=== PATIENT | female | born 1960 | race Caucasian/White ===

== ENCOUNTER 2019-06-13 13:16 | Outpatient (CLI) | payer MEDICARE, MEDICAID, SELFPAY ==
[2019-06-13 14:14] LABS: Hematocrit 39.1 % (37.0-47.0); Hemoglobin 12.4 g/dL (12.0-15.0); Mean Corpuscular HGB Conc 31.7 g/dl (32-36); Mean Corpuscular Hemoglobin 30.8 pg (26-34); Mean Platelet Volume 9.3 fl (7.4-10.4); Platelet Count Result 310 k/mm3 (150-375); Red Blood Count 4.03 M/mm3 (4.2-5.4); Red Cell Distribution Width 13.9 % (11.5-14.5); White Blood Count 6.2 K/mm3 (4.5-10.0)
[2019-06-13 14:22] LABS: Alanine Aminotransferase 23 U/L (4-35); Albumin Level 3.9 g/dL (3.5-5.1); Alkaline Phosphatase 89 U/L (38-126); Aspartate Amino Transferase 29 U/L (14-36); Bilirubin,Total 0.2 mg/dL (0.2-1.3); Blood Urea Nitrogen 19 mg/dL (7-17); Calcium 9.5 mg/dL (8.4-10.2); Carbon Dioxide 28 mmol/L (22-30); Chloride 101 mmol/L (98-107); Estimated Glomerular Filt Rate > 60; Glucose 100 mg/dL (65-105); Potassium 3.6 mmol/L (3.4-5.0); Sodium 137 mmol/L (137-145)
[2019-06-13 14:23] LABS: Add Urine Microscopic? YES; Appearance Urine Cloudy (Clear); Bacteria Urine Trace /hpf; Bilirubin Urine Negative (Negative); Blood Urine Negative (Negative); Calcium Oxalate Crystals Urine Many /hpf; Color Urine Amber (Yellow); Glucose Urine UA Negative (Negative); Ketones Urine Negative (Negative); Leukocyte Esterase Ur 3+ LEU/UL (NEGATIVE); Mucus Urine Heavy /lpf; Nitrate Urine Negative (Negative); Protein Urine 1+ mg/dL (Negative); Specific Grav Ur 1.029 (1.001-1.035); Squamous Epithelial Cell Urine Few /hpf (Few); WBC Urine >75 /hpf (0-3)
[2019-06-19 21:42] LABS: Anti Nuclear Antibody Pattern Nuclear, Speckled
== END 2019-06-13 13:17 | disposition home or self-care (01) ==
PROVIDERS: PCP Internal Medicine
DX: L93.0 Discoid lupus erythematosus (principal)
CPT/HCPCS: 36415; 80048; 80076; 81001; 85027; 86038; 86039

== ENCOUNTER 2019-11-14 10:45 | Outpatient (CLI) | payer MEDICARE, MEDICAID, SELFPAY ==
--- NOTE | ~2019-11-14 | XR_ITS ---
EXAMINATION: HAND-FESTUS ARTHRITIS 3+VIEWS DATE: 11/14/2019 11:12 INDICATION: Osteoarthritis TECHNIQUE: Posteroanterior, lateral, and oblique views of the left and of the right hands as well as a ballcatchers view of both hands were obtained. COMPARISON: 03/30/2017 FINDINGS: Unchanged chronic mild widening of the right scapholunate interval. There is ulnar subluxation and an gulation at the bilateral second-fifth metacarpophalangeal joints. Typical pattern of relatively symm etric mild polyarticular osteoarthritis bilateral metacarpophalangeal and interphalangeal joints as w ell as the bilateral wrist, triscaphe and first carpal metacarpal joints. No cortical erosions to sug gest rheumatoid arthritis. IMPRESSION: 1. Jaccoud arthropathy with ulnar subluxation and deviation at the bilateral second-fifth metacarpoph alangeal joints typical of and consistent with provided history of lupus. 2. Mild polyarticular osteoarthritis. 3. Chronic widening of the right scapholunate interval suggesting at least partial tear of the scapho lunate ligament. Reviewed, dictated and finalized at location A. IMPRESSION: 1. Jaccoud arthropathy with ulnar subluxation and deviation at the bilateral se cond-fifth metacarpophalangeal joints typical of and consistent with provided h istory of lupus. 2. Mild polyarticular osteoarthritis. 3. Chronic widening of the right scapholunate interval suggesting at least part ial tear of the scapholunate ligament.
--- NOTE | ~2019-11-14 | XR_ITS ---
EXAMINATION: XR foot LT standing 2V, XR foot RT standing 2V DATE: 11/14/2019 11:13 INDICATION: Lupus TECHNIQUE: 1. Standing dorsal plantar and lateral views of the left foot were obtained. 2. Standing dorsal plantar and lateral views of the right foot were obtained. COMPARISON: None. FINDINGS: Mild hallux valgus at the right foot. Normal alignment at the left foot. No fractures. Relatively sym metric mild osteoarthritis at the bilateral first metatarsophalangeal joints with minimal osteoarthri tis at a few of the tarsal metatarsal and interphalangeal joints. No erosions to suggest an inflammat ory arthritis. Small bilateral Achilles and plantar calcaneal spurs. Soft tissues are unremarkable. IMPRESSION: 1. Relatively symmetric pattern of minimal to mild polyarticular osteoarthritis in the fore and mid f eet. Reviewed, dictated and finalized at location A. IMPRESSION: 1. Relatively symmetric pattern of minimal to mild polyarticular osteoarthritis in the fore and mid feet.
[2019-11-14 11:53] LABS: Hematocrit 39.5 % (37.0-47.0); Hemoglobin 13.3 g/dL (12.0-15.0); Mean Corpuscular HGB Conc 33.7 g/dl (32-36); Mean Corpuscular Hemoglobin 31.6 pg (26-34); Mean Corpuscular Volume 93.8 fl (80-100); Mean Platelet Volume 9.1 fl (7.4-10.4); Platelet Count Result 263 k/mm3 (150-375); Red Blood Count 4.21 M/mm3 (4.2-5.4); Red Cell Distribution Width 14.3 % (11.5-14.5); White Blood Count 3.7 K/mm3 (4.5-10.0)
[2019-11-14 11:59] LABS: Add Urine Microscopic? YES; Appearance Urine Clear (Clear); Bilirubin Urine Negative (Negative); Blood Urine Negative (Negative); Color Urine Amber (Yellow); Glucose Urine UA Negative (Negative); Ketones Urine Negative (Negative); Leukocyte Esterase Ur 3+ LEU/UL (Negative); Mucus Urine Few /lpf; Nitrate Urine Negative (Negative); Protein Urine 1+ mg/dL (Negative); Specific Grav Ur 1.025 (1.001-1.035); Squamous Epithelial Cell Urine Occasional /hpf (Few); WBC Urine >75 /hpf
[2019-11-14 12:11] LABS: Alanine Aminotransferase 26 U/L (4-35); Albumin Level 4.4 g/dL (3.5-5.1); Alkaline Phosphatase 133 U/L (38-126); Aspartate Amino Transferase 31 U/L (14-36); Bilirubin,Total 0.2 mg/dL (0.2-1.3); Blood Urea Nitrogen 17 mg/dL (7-17); CRP < 0.5 mg/dL (<1.0); Calcium 9.2 mg/dL (8.4-10.2); Carbon Dioxide 26 mmol/L (22-30); Chloride 107 mmol/L (98-107); Estimated Glomerular Filt Rate > 60; Glucose 108 mg/dL (65-105); Potassium 4.1 mmol/L (3.4-5.0); Sodium 141 mmol/L (137-145)
[2019-11-14 12:24] LABS: Erythrocyte Sedimentation Rate 28 mm/hr (0-20)
[2019-11-14 12:54] LABS: Complement C3 97 mg/dL (88-165); Rheumatoid Factor > 120.0 IU/ML (<12)
[2019-11-14 13:08] LABS: Vitamin D 25 Hydroxy 40.5 ng/mL
[2019-11-16 21:45] LABS: Anti Cyclic Citrullinated Pept <16 Units (<20)
[2019-11-16 21:56] LABS: Anti Cardio Antibody IgM 15 MPL (<=12); Anti Cardiolipin Antibody IgA <11 APL (<=11); Anti Cardiolipin Antibody IgG <14 GPL (<=14)
[2019-11-17 04:36] LABS: Lupus dRVVT 1:1 Mix Interpreta Not Indicated; Lupus dRVVT Screen 30 sec (<=45); PTT-LA Screen 30 sec (<=40)
[2019-11-18 09:42] LABS: SS-A <1.0; SS-B 2.1
[2019-12-26 14:08] LABS: SM Antibody <1.0
== END 2019-11-14 10:46 | disposition home or self-care (01) ==
LOC: ANHIMG 10:51
PROVIDERS: PCP Internal Medicine; Visit Provider Internal Medicine
DX: M32.9 Systemic lupus erythematosus, unspecified (principal); M19.90 Unspecified osteoarthritis, unspecified site; M25.9 Joint disorder, unspecified; M81.0 Age-related osteoporosis without current pathological fracture; M19.072 Primary osteoarthritis, left ankle and foot; M19.071 Primary osteoarthritis, right ankle and foot; M12.04 Chronic postrheumatic arthropathy [Jaccoud], hand; M12.041 Chronic postrheumatic arthropathy [Jaccoud], right hand; M19.042 Primary osteoarthritis, left hand; M19.041 Primary osteoarthritis, right hand
CPT/HCPCS: 36415; 73130; 73620; 80053; 81001; 82306; 85027; 85613; 85652; 85730; 86140; 86147; 86160; 86200; 86225; 86235; 86430; 87086

== ENCOUNTER 2020-01-31 11:00 | Outpatient (CLI) | payer MEDICARE, MEDICAID, SELFPAY ==
[2020-01-31 11:53] LABS: Add Urine Microscopic? YES; Appearance Urine Clear (Clear); Bacteria Urine Trace /hpf; Bilirubin Urine Negative (Negative); Blood Urine Negative (Negative); Color Urine Straw (Yellow); Glucose Urine UA Negative (Negative); Ketones Urine Negative (Negative); Leukocyte Esterase Ur 2+ LEU/UL (Negative); Nitrate Urine Negative (Negative); Protein Urine Negative (Negative); RBC Urine 0-2 /hpf (0-2); Specific Grav Ur 1.008 (1.001-1.035); Squamous Epithelial Cell Urine Rare /hpf (Few); Transitional Epi Cells Urine Rare /hpf (None Seen); Urobilinogen Urine Negative mg/dL (<2.0); WBC Urine 21-30 /hpf
[2020-01-31 12:00] LABS: Alanine Aminotransferase 281 U/L (4-35); Alkaline Phosphatase 132 U/L (38-126); Anion Gap 4 mmol/L (8-16); Aspartate Amino Transferase 227 U/L (14-36); Bilirubin,Total 0.4 mg/dL (0.2-1.3); Blood Urea Nitrogen 14 mg/dL (7-17); Calcium 9.2 mg/dL (8.4-10.2); Carbon Dioxide 25 mmol/L (22-30); Chloride 109 mmol/L (98-107); Estimated Glomerular Filt Rate > 60; Glucose 81 mg/dL (65-105); Sodium 138 mmol/L (137-145)
== END 2020-01-31 11:01 | disposition home or self-care (01) ==
LOC: ANHLAB 11:05
PROVIDERS: PCP Internal Medicine; Visit Provider Internal Medicine
DX: M32.9 Systemic lupus erythematosus, unspecified (principal); M19.90 Unspecified osteoarthritis, unspecified site
CPT/HCPCS: 36415; 80053; 81001; 87086; 87088

== ENCOUNTER 2024-03-11 10:22 | Emergency (ER) | payer MEDICARE, MEDICAID, SELFPAY ==
[2024-03-11 10:31] VITALS: BP 155/101; PULSE 87; RESP 18; TEMP 36.5; O2SAT 100
--- NOTE | 2024-03-11 12:11 | ED.ANXIETY ---
HPI - Anxiety General Chief Complaint: Anxiety Stated Complaint: out of psych meds x 1 month, feels shakey Time Seen by Provider: 03/11/24 12:06 Source: patient and family Mode of arrival: ambulatory Limitations: no limitations History of Present Illness HPI narrative: 63 years old white female lives alone, history of anxiety, depression and recurrent panic attacks, on clonazepam 1 mg twice a day as needed. Patient run out of it over 6 days ago, currently feeling jittery, restless, anxious, patient have a refill at the pharmacy right now at the plan to go get it immediately. She denies any fever, chills, nausea, vomiting, chest pain or shortness of breath Related Data Home Medications Medication Instructions Recorded Confirmed albuterol sulfate 1.25 mg/3 mL 1.25 mg inhalation TID 08/06/21 03/11/24 solution for nebulization clonazepam 2 mg tablet 2 mg PO BID 08/06/21 03/11/24 lamotrigine 200 mg tablet 400 mg PO DAILY 08/06/21 03/11/24 linaclotide 290 mcg capsule 290 mcg PO QAM 08/06/21 03/11/24 (Linzess) ondansetron 4 mg disintegrating 8 mg PO QAM PRN Nausea 08/06/21 03/11/24 tablet polyethylene glycol 3350 17 34 g PO DAILY 08/06/21 03/11/24 gram/dose oral powder adalimumab 40 mg/0.8 mL 40 mg subcut WEEKLY 03/11/24 03/11/24 subcutaneous pen kit (Humira Pen) hydroxyzine HCl 10 mg tablet 10 mg PO PRN 03/11/24 03/11/24 Allergies Allergy/AdvReac Type Severity Reaction Status Date / Time bupropion [From Wellbutrin] Allergy Rash Verified 03/11/24 10:43 Review of Systems Review of Systems: All systems reviewed & are unremarkable except as noted in HPI and below PMFSH Past Medical History Medical History Herpes zoster dermatitis Lupus (systemic lupus erythematosus) (~2011) Psoriasis (~2018) Seronegative rheumatoid arthritis of both hands Seronegative rheumatoid arthritis of multiple sites Social History Social History Smoking packs per day: 10 Smoking cigarettes per day: 200.0 Years smoked: 45 Smoking pack-years: 450.00 Smoking status: Former smoker Tobacco type: cigarettes Alcohol intake: never Substance use type: does not use Lack of Transportation: No Lack of Food: Never True Current Housing: I Have Housing Concerned About Future Housing: No Difficulty Paying Gas/Electric Bills: No Difficulty Paying for Meds: No Currently Unemployed: No Education: High School Diploma/GED Difficulty w/ Childcare or Family Care: No Spiritual care concerns: No Exam Narrative: General appearance: Well-developed, well-nourished, restless Skin: Normal color Head: Normocephalic, nontraumatic Chest and respiratory: Airway patent, no respiratory distress, no accessory muscle use Heart: Regular rate/rhythm Musculoskeletal: Normal range of motion, nontender back Neurologic: Alert and oriented ?3, [employer] is normal as tested, no gross motor deficit Course Vital Signs Vital signs: Vital Signs Temperature 36.5 C 03/11/24 10:31 Pulse Rate 87 03/11/24 10:31 Respiratory Rate 18 03/11/24 10:31 Blood Pressure 155/101 H 03/11/24 10:31 Pulse Oximetry 100 03/11/24 10:31 Oxygen Delivery Room Air 03/11/24 10:31 Temperature 36.5 C 03/11/24 10:31 Pulse Rate 87 03/11/24 10:31 Respiratory Rate 18 03/11/24 10:31 Blood Pressure 155/101 H 03/11/24 10:31 Pulse Oximetry 100 03/11/24 10:31 Oxygen Delivery Room Air 03/11/24 10:31 MDM - Anxiety MDM Narrative Medical decision making narrative: Anxiety like symptoms, Run out of clonazepam, Close min p.o. prior to discharge, patient is planning to go get her clonazepam from the pharmacy right now. Differential Diagnosis Differential diagnosis: Likely acute anxiety Critical Care Time Critical Care Time Critical Care Time: No Discharge Plan Discharge Clinical Impression: Acute anxiety, Non-compliance Patient Disposition: Home, Self-Care Condition: Stable Instructions: Anxiety (ED) Additional Instructions: Return if symptoms are worsening , call your family physician for appointment, take Tylenol as as needed for aches and pain, continue home medications. Call your psychiatrist for further evaluation Prescriptions: No Action albuterol sulfate 1.25 mg/3 mL solution for nebulization 1.25 mg inhalation TID clonazepam 2 mg tablet 2 mg PO BID lamotrigine 200 mg tablet 400 mg PO DAILY polyethylene glycol 3350 17 gram/dose powder 34 g PO DAILY ondansetron 4 mg tablet,disintegrating 8 mg PO QAM PRN (Reason: Nausea) Linzess 290 mcg capsule 290 mcg PO QAM cyclobenzaprine 5 mg tablet 5 mg PO TID PRN (Reason: muscle spasm) Qty: 30 2RF hydroxyzine HCl 10 mg tablet 10 mg PO PRN Humira Pen 40 mg/0.8 mL pen injector kit 40 mg SUBCUT WEEKLY hydroxychloroquine 200 mg tablet 200 mg PO BID Qty: 90 6RF azathioprine 50 mg tablet 50 mg PO BID Qty: 60 2RF Follow-up/Referrals: Ephraim Farrell DO [Primary Care Provider] -
[2024-03-11] MEDS: LORazepam (*CRX) 0.5 MG TABLET 1 MG PO (12:21)
[2024-03-11] MEDS: clonazePAM (*CRX) 0.5 MG TABLET 1 MG PO (13:11)
[2024-03-11 13:17] VITALS: BP 136/90; PULSE 89; RESP 18; TEMP 36.7; O2SAT 98
== END 2024-03-11 13:18 | disposition home or self-care (01) ==
PROVIDERS: Emergency Provider Emergency Medicine; PCP Internal Medicine
DX: F41.9 Anxiety disorder, unspecified (principal); Z91.148 Patient's other noncompliance with medication regimen for other reason; M32.9 Systemic lupus erythematosus, unspecified; Z87.891 Personal history of nicotine dependence
CPT/HCPCS: 99283; A9270

== ENCOUNTER 2024-03-16 11:32 | Inpatient (IN) | payer MEDICARE, MEDICAID, SELFPAY ==
[2024-03-16] VITALS (12 sets, daily range): BP systolic 139–164; BP diastolic 53–85; PULSE 75–102; RESP 16–26; TEMP 36.3–36.9; O2SAT 93–100
--- NOTE | ~2024-03-16 | MR_ITS ---
EXAMINATION: MR brain/brain stem wo/w con DATE: 03/17/2024 09:29 INDICATION: Syncope. Abnormal muscular movements of right lower extremity. TECHNIQUE: Magnetic resonance imaging (MRI) of the brain and brainstem was performed without and with 13 mL MultiHance intravenous contrast. COMPARISON: Head CT 03/16/2024 FINDINGS: There are scattered areas of nonspecific increased T2-weighted signal intensity in the cere bral white matter and oscar. There is no intracranial hemorrhage, acute infarction, or abnormal intrac ranial mass lesion. The ventricles are normal in size. There are likely changes of ocular lens replac ement surgeries. The paranasal sinuses are clear. The mastoid air cells are normal. IMPRESSION: 1. Moderate nonspecific cerebral white matter disease and pontine disease, which likely represents ch ronic small vessel ischemic disease. Reviewed, dictated and finalized at location A. [employer] IMPRESSION: 1. Moderate nonspecific cerebral white matter disease and pontine disease, whic h likely represents chronic small vessel ischemic disease.
--- NOTE | ~2024-03-16 | CT_ITS ---
EXAMINATION: CTA brain carotid DATE: 03/16/2024 14:24 INDICATION: Syncope. TECHNIQUE: Computed tomographic angiography (CTA) of the head was performed without and with 100 mL O mnipaque-350 intravenous contrast. CTA of the neck was performed with intravenous contrast. Automated exposure control and iterative reconstruction technique were employed. The dose-length product was 1 524.13 mGy-cm. Maximum intensity projection and volume rendered 3D-reconstructions were created by shawna xiao technologist on a separate workstation. COMPARISON: None. FINDINGS: HEAD CTA: There are scattered areas of low attenuation in the cerebral white matter. There is no intr acranial hemorrhage, acute infarction, or abnormal intracranial mass lesion. The ventricles are gopal l in size. There are likely changes of ocular lens replacement surgeries. The paranasal sinuses are c lear. The mastoid air cells are normal. The vertebral arteries are codominant. There is mild stenosis of distal right vertebral artery. There is no significant stenosis of basilar artery or the posterio r cerebral arteries. There is no significant stenosis of the intracranial internal carotid arteries o r anterior or middle cerebral arteries. Anterior communicating artery is normal. The posterior commun icating arteries are normal. There is no aneurysm. NECK CTA: The lung apices demonstrate at least moderate emphysema. There are nodules in the thyroid m easuring up to 10 mm, likely not clinically significant. There are no pathologically enlarged lymph n odes. There is no significant stenosis of the vertebral arteries. There is plaque in the proximal int ernal carotid. There is 20% stenosis of the proximal right internal carotid artery relative to normal distal artery lumen diameter (NASCET criteria). There is 27% stenosis of the proximal left internal carotid artery relative to normal distal artery lumen diameter. There is severe cervical spondylosis. IMPRESSION: 1. Moderate nonspecific cerebral white matter disease, which likely represents chronic small vessel i schemic disease. 2. No aneurysm or significant intracranial arterial stenosis. 3. 20% stenosis of the proximal right internal carotid artery relative to normal distal artery lumen diameter (NASCET criteria). 4. 27% stenosis of the proximal left internal carotid artery relative to normal distal artery lumen d iameter. Reviewed, dictated and finalized at location A. [employer] ADVISEMENT DIRECTOR IMPRESSION: 1. Moderate nonspecific cerebral white matter disease, which likely represents chronic small vessel ischemic disease. 2. No aneurysm or significant intracranial arterial stenosis. 3. 20% stenosis of the proximal right internal carotid artery relative to gopal l distal artery lumen diameter (NASCET criteria). 4. 27% stenosis of the proximal left internal carotid artery relative to normal distal artery lumen diameter.
--- NOTE | ~2024-03-16 | XR_ITS ---
XR chest 1V portable Ordering provider: Mag Lau MD History: 63 years Female with . syncope . Comparison: None. FINDINGS: MEDIASTINUM: The cardiac silhouette is not enlarged. LUNGS: No infiltrates, effusions or pneumothorax. Interstitial changes seen in the lower lobes. Underlying emphysematous changes. OTHER: No free air under the diaphragm. IMPRESSION: Bilateral interstitial changes in the lower lobes. Pneumonitis cannot be excluded. Clinical correlati on advised. Reviewed, dictated and finalized at location A. [address] MANAGER IMPRESSION: Bilateral interstitial changes in the lower lobes. Pneumonitis cannot be exclud ed. Clinical correlation advised.
--- NOTE | 2024-03-16 12:21 | ED.FALL ---
HPI - Fall General Chief Complaint: Fall Stated Complaint: fall - head injury, ass pain Time Seen by Provider: 03/16/24 12:16 Source: patient and family (daughter) Mode of arrival: ambulatory Limitations: no limitations History of Present Illness HPI Narrative: Patient presents with concern for frequent falls. She has fallen multiple times yesterday had a prior although none today. She was seen at [facility] ER yesterday and discharged. She states she has had increased confusion. She will lose consciousness and muscle tone. She states sometimes she gets dizzy. Daughter notes that she has been having some involuntary leg movements on the right side and her right foot was dragging while walking up the steps last night. She has a history of lupus but was being treated for psoriasis, previously receiving injections and followed by topical ointment but this was not well tolerated and she quit using this. Otherwise no new medications. No bloody stools or vaginal bleeding. She has a very mild headache. Yesterday daughter noted slurred speech. Triage note states that she has had weakness although she denies this. She states that she sometimes has to grab onto something to help her walk but she does not necessarily feel weak. Not on anticoagulation. She had her 1st seizure on August 09. She is not on medication as this seizure was attributed to her being off of her Klonopin which she had previously taken. No vomiting. She had diarrhea last week. She denies any vision changes. No chest pain but she does get short of breath. PCP = Valentina Yarbrough Related Data Home Medications Medication Instructions Recorded Confirmed albuterol sulfate 1.25 mg/3 mL 1.25 mg inhalation TID 08/06/21 03/16/24 solution for nebulization clonazepam 2 mg tablet 2 mg PO BID 08/06/21 03/16/24 lamotrigine 200 mg tablet 100 mg PO BID 08/06/21 03/16/24 linaclotide 290 mcg capsule 290 mcg PO QAM 08/06/21 03/16/24 (Linzess) ondansetron 4 mg disintegrating 4 mg PO QAM PRN Nausea 08/06/21 03/16/24 tablet polyethylene glycol 3350 17 17 g PO DAILY 08/06/21 03/16/24 gram/dose oral powder hydroxyzine HCl 10 mg tablet 10 mg PO PRN 03/11/24 03/16/24 sertraline 50 mg tablet 50 mg PO DAILY 03/16/24 03/16/24 Allergies Allergy/AdvReac Type Severity Reaction Status Date / Time bupropion [From Wellbutrin] Allergy Rash Verified 03/11/24 10:43 [facility] Past Medical History Medical History Herpes zoster dermatitis History of seizure x1 (August 09); attributed to Wellbutrin which was d/c'd Lupus (systemic lupus erythematosus) (~2011) Psoriasis (~2018) Seronegative rheumatoid arthritis of both hands Seronegative rheumatoid arthritis of multiple sites Tobacco use Vitamin D deficiency Family History Family History Mother Diabetes mellitus Father Heart disease Social History Social History Smoking packs per day: 10 Smoking cigarettes per day: 200.0 Years smoked: 50 Smoking pack-years: 500.00 Smoking status: Current every day smoker Tobacco type: cigarettes Alcohol intake: never Substance use: current Substance use type: marijuana Do You Feel Safe in your Home?: Yes Lack of Transportation: No Lack of Food: Never True Current Housing: I Have Housing Concerned About Future Housing: No Difficulty Paying Gas/Electric Bills: No Difficulty Paying for Meds: No Currently Unemployed: No Education: High School Diploma/GED Difficulty w/ Childcare or Family Care: No Spiritual care concerns: No Exam Narrative: GENERAL: Well-appearing, well-nourished, and in no acute distress. HEAD: Normocephalic, atraumatic. EYES: Non injected, non icteric. No gaze palsy. Horizontal extraocular movements intact without nystagmus. Patienthas segments of her vision that she seems to not be able to account for on assessment of visual mercado, however without clear distinct regions (possibly quadrantopia versus a hemianopia); very difficult for patient to understand instructions despite multiple attempts. ENT: Nares clear, no rhinorrhea or epistaxis. NECK: Supple. CHEST: Speaking in full sentences. No respiratory distress. HEART: Regular rate and rhythm. ABDOMEN: Soft, nondistended. EXTREMITIES: Normal range of motion. No lower extremity edema. SKIN: Warm, dry. Extensive rash cheeks, bridge of nose, and along superior anterior chest. NEURO: Alert and oriented x3. Follows the commands of squeezing finger and closing eyes but other commands at times seemed difficult for her to follow. No facial palsy. No motor drift in extremities x4. No ataxia 1 [id number]. Normal sensation throughout. Speaks clearly without aphasia. No dysarthria. Patient does have extinction to bilateral simultaneous stimulation. PSYCH: Normal mood and affect. Course Vital Signs Vital signs: Vital Signs Temperature 97.8 F 03/16/24 11:33 Pulse Rate 83 03/16/24 11:33 Respiratory Rate 18 03/16/24 11:33 Blood Pressure 145/72 H 03/16/24 11:33 Pulse Oximetry 100 03/16/24 11:33 Oxygen Delivery Room Air 03/16/24 11:33 Temperature 98.1 F 03/16/24 19:49 Pulse Rate 84 03/16/24 19:48 Respiratory Rate 18 03/16/24 19:48 Blood Pressure 149/69 H 03/16/24 20:00 Pulse Oximetry 93 03/16/24 19:48 Oxygen Delivery Room Air 03/16/24 11:33 MDM - Fall MDM Narrative Medical decision making narrative: Patient seen for frequent falls . She has been losing muscle tone and consciousness multiple times yesterday and the day prior although none today. This combination is concerning for syncope. In the emergency department she is afebrile vital signs notable for only very mild hypertension. Level Of consciousness: Month and age: 0 Follows commands: 0 (follows the ones per NIHSS though has difficulty with some others) Gaze palsy: 0 Visual mercado: +1 (?) Facial palsy: 0 Left arm motor drift: 0 Right arm motor drift:0 Left leg motor drift:0 Right leg motor drift:0 Limb ataxia:0 Sensation: 0 Aphasia: 0 Dysarthria: 0 Extinction: 1 NIHSS 2 Patient has leukopenia which is previously been seen. She also has a normocytic anemia though only a slight change from previous. Mildly elevated BNP with no prior for comparison. Lasix ordered. CXR however is not showing pulmonary edema but rather nonspecific interstitial changes. [place] Syncope Rule: Congestive heart failure history: possible new diagnosis Hematocrit <30%: 0 EKG abnormal (changed or any non-sinus rhythm): 0 SOB symptoms: Yes SBP <90mmHg at triage: No Therefore NOT low risk. Discussed admission with patient and her daughter who are in agreement and inquiring about physical therapy assessment and possible rehabilitation. Discussed with diversional therapist hospitalist ARABELLA Witt. Differential Diagnosis Differential diagnosis: Likely syncope (of varying etiologies including orthostatics, tachy dysrhythmias, Beni dysrhythmia; vagal, etc.; renal failure; electrolyte abnormalities) and other (Lupus LENS BLOCKER vasculitis; CVA/TIA; symptomatic anemia, electrolyte abnormalities; urinary tract infection, pneumonia) Lab Data Attestation: I reviewed the patient's lab results. 03/16/24 13:06 03/16/24 13:06 Labs: Lab Results 03/16/24 Range/Units 13:06 WBC 4.1 L (4.5-10.0) K/mm3 RBC 3.87 L (4.2-5.4) M/mm3 Hgb 11.9 L (12.0-15.0) g/dL Hct 36.3 L (37.0-47.0) % MCV 93.8 (80-100) fl MCH 30.7 (26-34) pg MCHC 32.8 (32-36) g/dl RDW 15.6 H (11.5-14.5) % Plt Count 214 (150-375) k/mm3 MPV 9.8 (7.4-10.4) fl Immature Gran % (Auto) 0.2 (0-0.5) % Neut % (Auto) 43.1 L (45.5-73.1) % Lymph % (Auto) 45.9 H (18.3-44.2) % [place] % (Auto) 8.1 (2.6-8.5) % Eos % (Auto) 2.5 (0-4.4) % Baso % (Auto) 0.2 (0.2-1.2) % Lymph # (Auto) 1.86 (0.9-3.2) K/mm3 [place] # (Auto) 0.3 (0.1-0.6) K/mm3 Eos # (Auto) 0.1 (0-0.3) K/mm3 Baso # (Auto) 0.0 (0.0-0.1) K/mm3 Abs Immat Gran (auto) 0.01 (0.00-0.031) K/mm3 Absolute Neuts (auto) 1.7 (1.3-6.7) K/mm3 Absolute Nucleated RBC 0.000 (0.0-0.012) K/mm3 Nucleated RBC % 0.0 (0.0-0.2) % PT 12.8 (11.1-14.7) Seconds INR 0.9 APTT 26.3 (22.3-36.8) Seconds Sodium 141 (137-145) mmol/L Potassium 4.2 (3.4-5.0) mmol/L Chloride 108 H (98-107) mmol/L Carbon Dioxide 28 (22-30) mmol/L Anion Gap 5 (4-12) mmol/L BUN 14 D (7-17) mg/dL Creatinine 0.80 (0.7-1.0) mg/dL Estim Creat Clear Calc 55 ml/min Estimated GFR > 60 (59 - ) Glucose 71 (65-110) mg/dL Calcium 8.5 (8.4-10.2) mg/dL Magnesium 2.0 (1.6-2.3) mg/dL Total Bilirubin 0.3 (0.2-1.3) mg/dL AST 21 (14-36) U/L ALT 10 (6-35) U/L Alkaline Phosphatase 85 (38-126) U/L Total Creatine Kinase 41 (30-135) U/L Troponin I < 0.012 (0.000-0.034) ng/mL NT-Pro-B Natriuret Pep 2120 H (19.9-100) pg/mL Total Protein 8.0 (6.3-8.2) g/dL Albumin 3.8 (3.5-5.1) g/dL Urine Color Yellow (Yellow) Urine Appearance Clear (Clear) Urine pH 6.0 (5.0-9.0) Ur Specific Bennett 1.014 (1.001-1.035) Urine Protein Negative (Negative) mg/dL Urine Glucose (UA) Negative (Negative) mg/dL Urine Ketones Negative (Negative) mg/dL Ur Blood (Man) Negative (Negative) Urine Nitrate Negative (Negative) Urine Bilirubin Negative (Negative) Urine Urobilinogen 0.2 (<2.0) mg/dL Leukocyte Esterase Rfl Trace H (Negative) MARINA/UL Urine RBC 0-2 (0-2) /hpf Urine WBC 0-5 (0-3) /hpf Ur Squamous Epith Cells None seen (Few) /hpf Urine Bacteria None seen /hpf Urine Casts 0-2 Urine Opiates Screen Negative (Negative) Urine Methadone Screen Negative (Negative) Ur Barbiturates Screen Negative (Negative) Ur Phencyclidine Scrn Negative (Negative) Ur Amphetamine Screen Negative (Negative) U Benzodiazepines Scrn Negative (Negative) Urine Cocaine Screen Negative (Negative) U Cannabinoids Screen Negative (Negative) Imaging Data Radiologist's impression: Impressions Chest X-Ray 03/16/24 14:24 IMPRESSION: Bilateral interstitial changes in the lower lobes. Pneumonitis cannot be excluded. Clinical correlation advised. Head/Neck CTA 03/16/24 14:25 IMPRESSION: 1. Moderate nonspecific cerebral white matter disease, which likely represents chronic small vessel ischemic disease. 2. No aneurysm or significant intracranial arterial stenosis. 3. 20% stenosis of the proximal right internal carotid artery relative to normal distal artery lumen diameter (NASCET criteria). 4. 27% stenosis of the proximal left internal carotid artery relative to normal distal artery lumen diameter. ECG Data EKG #1: Attestation: I personally reviewed and interpreted this ECG as follows: ECG completion date: 03/16/24 ECG completion time: 15:15 Interpretation: Normal sinus rhythm at a rate of 79 beats per minute. IA interval 135. QRS 92 milliseconds. QT/QTC 403/436. Good R-wave progression across the precordial leads. No T-wave inversions. Normal axis. Normal ECG. Discharge Plan Discharge Clinical Impression: Syncope, Leukopenia, Normocytic anemia, Elevated brain natriuretic peptide (BNP) level, Abnormal chest x-ray, Stenosis of both internal carotid arteries Patient Disposition: Still a Patient Condition: Stable
[2024-03-16 13:13] LABS: Basophils Percent Auto 0.2 % (0.2-1.2); Eosinophils Absolute Auto 0.1 K/mm3 (0-0.3); Eosinophils Percent Auto 2.5 % (0-4.4); Hematocrit 36.3 % (37.0-47.0); Hemoglobin 11.9 g/dL (12.0-15.0); Immature Granulocyte Absolute 0.01 K/mm3 (0.00-0.031); Immature Granulocyte Percent A 0.2 % (0-0.5); Lymphocytes Absolute Auto 1.86 K/mm3 (0.9-3.2); Lymphocytes Percent Auto 45.9 % (18.3-44.2); Mean Corpuscular HGB Conc 32.8 g/dl (32-36); Mean Corpuscular Hemoglobin 30.7 pg (26-34); Mean Corpuscular Volume 93.8 fl (80-100); Mean Platelet Volume 9.8 fl (7.4-10.4); Monocytes Absolute Auto 0.3 K/mm3 (0.1-0.6); Monocytes Percent Auto 8.1 % (2.6-8.5); Neutrophils Absolute Auto 1.7 K/mm3 (1.3-6.7); Neutrophils Percent Auto 43.1 % (45.5-73.1); Platelet Count Result 214 k/mm3 (150-375); Red Blood Count 3.87 M/mm3 (4.2-5.4); Red Cell Distribution Width 15.6 % (11.5-14.5); White Blood Count 4.1 K/mm3 (4.5-10.0)
[2024-03-16 13:22] LABS: Add Urine Microscopic? YES; Appearance Urine Clear (Clear); Bacteria Urine None Seen /hpf; Bilirubin Urine Negative (Negative); Blood Urine Negative (Negative); Color Urine Yellow (Yellow); Glucose Urine UA Negative (Negative); Ketones Urine Negative (Negative); Leukocyte Esterase Ur Trace LEU/UL (Negative); Nitrate Urine Negative (Negative); Non Pathogenic Casts 0-2; Protein Urine Negative (Negative); RBC Urine 0-2 /hpf (0-2); Specific Grav Ur 1.014 (1.001-1.035); Squamous Epithelial Cell Urine None Seen /hpf (Few); Urobilinogen Urine 0.2 mg/dL (<2.0); WBC Urine 0-5 /hpf (0-3)
[2024-03-16 13:24] LABS: Alanine Aminotransferase 10 U/L (6-35); Albumin Level 3.8 g/dL (3.5-5.1); Alkaline Phosphatase 85 U/L (38-126); Anion Gap 5 mmol/L (4-12); Aspartate Amino Transferase 21 U/L (14-36); Bilirubin,Total 0.3 mg/dL (0.2-1.3); Blood Urea Nitrogen 14 mg/dL (7-17); Calcium 8.5 mg/dL (8.4-10.2); Carbon Dioxide 28 mmol/L (22-30); Chloride 108 mmol/L (98-107); Estimated CRCL calculation 55 ml/min; Estimated Glomerular Filt Rate > 60; Glucose 71 mg/dL (65-110); INR 0.9; Partial Thromboplastin Time 26.3 Seconds (22.3-36.8); Potassium 4.2 mmol/L (3.4-5.0); Prothrombin Time 12.8 Seconds (11.1-14.7); Sodium 141 mmol/L (137-145)
[2024-03-16 13:35] LABS: Troponin I < 0.012 ng/mL (0.000-0.034)
[2024-03-16 13:36] LABS: Amphetamine Screen Urine Negative (Negative); Barbiturate Screen Urine Negative (Negative); Benzodiazepines Screen Urine Negative (Negative); Cannabinoid Screen Urine Negative (Negative); Cocaine Screen Urine Negative (Negative); Creatine Kinase 41 U/L (30-135); Methadone Screen Urine Negative (Negative); Opiate Screen Urine Negative (Negative); Phencyclidine Screen Urine Negative (Negative)
[2024-03-16 13:44] LABS: NT Pro B Type Natriuretic Pept 2120 pg/mL (19.9-100)
--- NOTE | 2024-03-16 14:45 | ECG_ITS ---
Test Date: 2024-03-16 15:15:07 Measurements Intervals [place] Rate: 79 P: 40 ND: 135 QRS: 50 QRSD: 92 T: 68 QT: 401 QTc: 462 Interpretive Statements SINUS RHYTHM BORDERLINE ST-T WAVE ABNORMALITY- HIGH LATERAL LEADS BASELINE ARTIFACT- I, II, III, AVR, AVL, AVF, V6 BORDERLINE ECG No previous ECG available for comparison Electronically Signed On 03-16-2024 15:34:27 PUBLIC SAFETY TELECOMMUNICATOR by Cristobal Hendrix D.O.
[2024-03-16] MEDS: FUROSEMIDE INJ 40 MG/4 ML VIAL 20 MG IV PUSH (15:00)
[2024-03-16] MEDS: diphenhydrAMINE HCl INJ 50 MG/ML VIAL 25 MG IV PUSH (15:00)
--- NOTE | 2024-03-16 18:13 | ADMGEN ---
This patient, Chacha Lee, was admitted to Medical Room 248-. Patient/family oriented to hospital policies and general routines including ID bracelet, bed and alarms, visiting hours, pain management, procedures, bathroom and other care routines, personal items, smoking policy, room service/diet, and visiting hours. Information on how to activate the Rapid Response Team has been discussed. Patient/Family are encouraged to report perceived risks to care and to ask questions if they do not understand what they are told or what they should do.
--- NOTE | 2024-03-16 18:29 | P.HP_ITS ---
H&P: HPI History of Present Illness Date/Time: 03/16/24 18:29 Chief Complaint: Dizziness Narrative: 63 y/o F presents here with dizziness and frequent falls with PMH of seizures believed to be secondary to Wellbutrin (08/2023), SLE, and psoriasis. The patient presents here from [facility] for further evaluation of dizziness, frequent falls, and syncope. Patient reports that she began having syncopal episodes approximately 3 weeks ago. She reports no pre-syncopal symptoms prior to passing out including chest pain, dizziness, N/V, diaphoresis, palpitations, vision changes, or an aura. She reports that she will just wake up on the floor. No urinary or fecal incontinence. She reports that it has been occurring virtually every other day and has poor recollection of the month of February. She feels she has been very confused after the falls. She is concerned she has been having seizures. No witnessed seizure like activity. She does however report that she has had involuntary movement effecting the right leg which has been occurring almost daily and started around the same time as the syncopal episodes. She also reports that she feels off balance which has altered her gait. Does not typically need an assistive device. Patient was seen at [facility] ([place], [place]) for initial evaluation. There they told her that she was likely having seizures and told her to stop taking her Wellbutrin which she had already been off of for months. Patient's psychologist originally d/c'd the Wellbutrin which they contributed her seizures to. First seizure was in August of 2023. She denies focal weakness, focal numbness, vision changes, headache, dysphagia, dysarthria, orthopnea, or lower extremity swelling. Denies recreational druge use or ETOH use. Currently a smoker, 0.5 PPD x 50 years. Initial VS at presentation: 97.8? F, HR 83, R 18, 145/72, and 100% on RA. ED workup showed: WBC 4.1, hemoglobin 11.9, no significant electrolyte derangements, creatinine 0.8 and GFR >60, initial troponin negative, BNP 2 120. UA showed trace leuks. UDS negative. CXR showed bilateral interstitial changes in the lower lobes, pneumonitis cannot be excluded. Head/neck CTA showed moderate nonspecific cerebral white matter disease, no aneurysm or significant intracranial arterial stenosis, 20% stenosis of the proximal right ICA, 27% stenosis of the proximal left ICA. Review of Systems Review of Systems: All systems reviewed & are unremarkable except as noted in HPI and below [facility] Past Medical History Medical History Herpes zoster dermatitis History of seizure x1 (August 09); attributed to Wellbutrin which was d/c'd Lupus (systemic lupus erythematosus) (~2011) Psoriasis (~2018) Seronegative rheumatoid arthritis of both hands Seronegative rheumatoid arthritis of multiple sites Tobacco use Vitamin D deficiency Family History Family History Mother Diabetes mellitus Father Heart disease Social History Social History Smoking packs per day: 10 Smoking cigarettes per day: 200.0 Years smoked: 50 Smoking pack-years: 500.00 Smoking status: Current every day smoker Tobacco type: cigarettes Alcohol intake: never Substance use: current Substance use type: marijuana Do You Feel Safe in your Home?: Yes Lack of Transportation: No Lack of Food: Never True Current Housing: I Have Housing Concerned About Future Housing: No Difficulty Paying Gas/Electric Bills: No Difficulty Paying for Meds: No Currently Unemployed: No Education: High School Diploma/GED Difficulty w/ Childcare or Family Care: No Spiritual care concerns: No Meds Home Medications and Allergies Home Medications Medication Instructions Recorded Confirmed Type albuterol sulfate 1.25 mg/3 mL 1.25 mg inhalation TID 08/06/21 03/16/24 History solution for nebulization clonazepam 2 mg tablet 2 mg PO BID 08/06/21 03/16/24 History lamotrigine 200 mg tablet 100 mg PO BID 08/06/21 03/16/24 History linaclotide 290 mcg capsule 290 mcg PO QAM 08/06/21 03/16/24 History (Linzess) ondansetron 4 mg disintegrating 4 mg PO QAM PRN Nausea 08/06/21 03/16/24 History tablet polyethylene glycol 3350 17 17 g PO DAILY 08/06/21 03/16/24 History gram/dose oral powder hydroxychloroquine 200 mg tablet 200 mg PO BID #90 tabs 08/22/21 03/16/24 Rx azathioprine 50 mg tablet 50 mg PO BID #60 tabs 09/30/21 03/16/24 Rx hydroxyzine HCl 10 mg tablet 10 mg PO PRN 03/11/24 03/16/24 History sertraline 50 mg tablet 50 mg PO DAILY 03/16/24 03/16/24 History Allergies Allergy/AdvReac Type Severity Reaction Status Date / Time bupropion [From Wellbutrin] Allergy Rash Verified 03/11/24 10:43 Vital Signs Vital Signs - 24 hr 03/16/24 11:33 03/16/24 12:21 03/16/24 15:07 Temperature 97.8 F 98.5 F 98.2 F Pulse Rate 83 80 78 Respiratory Rate 18 23 H 26 H Blood Pressure 145/72 H 141/73 H 159/84 H Pulse Oximetry 100 100 100 Oxygen Delivery Room Air 03/16/24 15:17 03/16/24 15:18 03/16/24 15:21 Temperature Pulse Rate 81 81 102 H Respiratory Rate Blood Pressure 164/80 H 162/84 H 159/79 H Pulse Oximetry Oxygen Delivery 03/16/24 15:59 03/16/24 18:05 Temperature 98.2 F Pulse Rate 75 82 Respiratory Rate 24 H 21 H Blood Pressure 149/85 H 139/69 Pulse Oximetry 100 100 Oxygen Delivery Exam Narrative: A/Ox4. Neuro exam negative. Const: General: comfortable and no acute distress Other: , female, nontoxic appearance HENMT: Face/Nose/Sinus: Normal nares present Mouth: Yes moist mucous membranes Eyes: General: appearance normal, both eyes and all related structures Sclera: sclerae normal Pupils: Equal, round and reactive pupils present EOM: EOMs intact bilaterally Resp: Effort & Inspection: normal respiratory effort Auscultation: clear to auscultation bilaterally Cardio: Rate: regular rate Rhythm: regular rhythm Other: S1-S2 present without murmur, rub, ectopy GI: Auscultation: normal bowel sounds Other: Abdomen soft, nondistended, nontender. Skin: Wounds: no wounds Other: psoriasis plaques to facial cheeks bilaterally, erthematous and scaly rash to neck and upper trunk. Neuro: Speech: normal speech Motor exam (neuro): 5/5 motor strength present throughout Sensory Exam: normal sensation Other: A&O x4. No dysarthria, facial droop, nystagmus, or gaze deviation. Extrem: General: normal to inspection Psych: Mental Status: mental status grossly normal Affect: normal affect Other: Fair insight and judgment, pleasant H&P: Results Labs Labs: Short CBC 03/16/24 Range/Units 13:06 WBC 4.1 L (4.5-10.0) K/mm3 Hgb 11.9 L (12.0-15.0) g/dL Hct 36.3 L (37.0-47.0) % Plt Count 214 (150-375) k/mm3 BMP 03/16/24 13:06 Sodium 141 Potassium 4.2 Chloride 108 H Carbon Dioxide 28 BUN 14 D Creatinine 0.80 Glucose 71 Calcium 8.5 Cardiac Enzymes 03/16/24 Range/Units 13:06 Total Creatine Kinase 41 (30-135) U/L Troponin I < 0.012 (0.000-0.034) ng/mL Liver Function 03/16/24 Range/Units 13:06 Total Bilirubin 0.3 (0.2-1.3) mg/dL AST 21 (14-36) U/L ALT 10 (6-35) U/L Alkaline Phosphatase 85 (38-126) U/L Albumin 3.8 (3.5-5.1) g/dL Urine 03/16/24 Range/Units 13:06 Urine Color Yellow (Yellow) Urine Appearance Clear (Clear) Urine pH 6.0 (5.0-9.0) Ur Specific [place] 1.014 (1.001-1.035) Urine Protein Negative (Negative) mg/dL Urine Glucose (UA) Negative (Negative) mg/dL Assessment and Plan Assessment and plan (1) Syncope: Qualifiers: Syncope type: unspecified Qualified Code(s): R55 - Syncope and collapse Code(s): R55 - Syncope and collapse Status: Acute Assessment and Plan: - EKG, initial: Sinus rhythm, rate 79, borderline ST-T-wave abnormality in high lateral leads. No previous EKG available for comparison. - CXR: bilateral interstitial changes in the lower lobes, pneumonitis copy excluded. - head/neck CTA: 1. Moderate nonspecific cerebral white matter disease, which likely represents chronic small vessel ischemic disease. 2. No aneurysm or significant intracranial arterial stenosis. 3. 20% stenosis of the proximal right internal carotid artery relative to normal distal artery lumen diameter (NASCET criteria). 4. 27% stenosis of the proximal left internal carotid artery relative to normal distal artery lumen diameter. - Troponin: <0.012 x2, 3rd troponin ordered - UDS and UA negative - neurology consulted, awaiting recs - MRI brain with and without - consider a holter monitor at d/c - telemetry monitoring (2) Elevated brain natriuretic peptide (BNP) level: Code(s): R79.89 - Other specified abnormal findings of blood chemistry Status: Acute Assessment and Plan: - BNP 2119 - no echo on file, ordered - given patient is euvolemic on exam, will hold on diuresis - monitor I&Os and daily weights - trend renal function (3) Frequent falls: Code(s): R29.6 - Repeated falls Status: Acute Assessment and Plan: - fall precautions - PT/OT eval and treat (4) Tobacco use: Code(s): Z72.0 - Tobacco use Status: Acute Assessment and Plan: - pneumonitis seen on XR, suspect this is secondary to smoking - counseled on cessation, but patient is not interested in stopping citing that she doesn't smoke enough for it to be an issue in her eyes Plan Diet: Heart healthy GI Prophylaxis: Not currently indicated DVT Prophylaxis: SCDs Lines: Peripheral Code Status: Full code Quality VTE Prophylaxis VTE prophylaxis: mechanical ordered Hospitalist [facility] Advance Care Plan I have confirmed that the patient's Advanced Care Plan is present, code status is documented, or surrogate decision maker is listed in patient medical record.: Yes Medication Reconciliation I have utilized all available resources to obtain, update and review the patients current medications (includes all prescriptions, OTC, herbals, cannabis, and nutritional supplements).: Yes
[2024-03-16] MEDS: clonazePAM (*CRX) 0.5 MG TABLET 2 MG PO (18:56)
[2024-03-16] MEDS: azaTHIOprine 50 MG TABLET PO (18:56)
[2024-03-16] MEDS: HYDROXYCHLOROQUINE SULFATE 200 MG TABLET PO (18:56)
[2024-03-16 20:13] LABS: Troponin I < 0.012 ng/mL (0.000-0.034)
[2024-03-16 22:48] LABS: Troponin I < 0.012 ng/mL (0.000-0.034)
[2024-03-17] VITALS (15 sets, daily range): BP systolic 121–132; BP diastolic 63–76; PULSE 72–87; RESP 18–24; TEMP 36.6–37.1; O2SAT 96–99
[2024-03-17 06:20] LABS: Basophils Percent Auto 0.7 % (0.2-1.2); Eosinophils Absolute Auto 0.1 K/mm3 (0-0.3); Eosinophils Percent Auto 4.4 % (0-4.4); Hematocrit 36.3 % (37.0-47.0); Hemoglobin 11.7 g/dL (12.0-15.0); Immature Granulocyte Absolute 0.01 K/mm3 (0.00-0.031); Immature Granulocyte Percent A 0.3 % (0-0.5); Lymphocytes Absolute Auto 1.46 K/mm3 (0.9-3.2); Mean Corpuscular HGB Conc 32.2 g/dl (32-36); Mean Corpuscular Hemoglobin 30.2 pg (26-34); Mean Corpuscular Volume 93.6 fl (80-100); Mean Platelet Volume 10.6 fl (7.4-10.4); Monocytes Absolute Auto 0.3 K/mm3 (0.1-0.6); Monocytes Percent Auto 10.1 % (2.6-8.5); Neutrophils Absolute Auto 1.1 K/mm3 (1.3-6.7); Neutrophils Percent Auto 35.5 % (45.5-73.1); Platelet Count Result 225 k/mm3 (150-375); Red Blood Count 3.88 M/mm3 (4.2-5.4); Red Cell Distribution Width 15.4 % (11.5-14.5)
[2024-03-17 06:37] LABS: Anion Gap 6 mmol/L (4-12); Blood Urea Nitrogen 14 mg/dL (7-17); Calcium 8.4 mg/dL (8.4-10.2); Carbon Dioxide 30 mmol/L (22-30); Chloride 105 mmol/L (98-107); Estimated CRCL calculation 45 ml/min; Estimated Glomerular Filt Rate 56; Glucose 103 mg/dL (65-110); Potassium 3.4 mmol/L (3.4-5.0); Sodium 141 mmol/L (137-145)
[2024-03-17] MEDS: lamoTRIgine 100 MG TABLET PO (08:22)
[2024-03-17] MEDS: LINACLOTIDE 145 MCG CAPSULE 290 MCG PO (08:22)
[2024-03-17] MEDS: HYDROXYCHLOROQUINE SULFATE 200 MG TABLET PO ×2 (08:22→16:51)
[2024-03-17] MEDS: azaTHIOprine 50 MG TABLET PO ×2 (08:22→16:51)
[2024-03-17] MEDS: clonazePAM (*CRX) 0.5 MG TABLET 2 MG PO ×2 (08:22→16:51)
[2024-03-17] MEDS: SERTRALINE HCL 50 MG TABLET PO (08:23)
[2024-03-17] MEDS: polyethylene glycoL 3350 17 GM POWD.PACK PO (08:23)
--- NOTE | 2024-03-17 10:02 | P.PNIM_ITS ---
Progress Note: A&P Assessment and Plan (1) Syncope: Qualifiers: Syncope type: unspecified Qualified Code(s): R55 - Syncope and collapse Code(s): R55 - Syncope and collapse Status: Acute Assessment and Plan: - EKG, initial: Sinus rhythm, rate 79, borderline ST-T-wave abnormality in high lateral leads. No previous EKG available for comparison. - CXR: bilateral interstitial changes in the lower lobes, pneumonitis copy excluded. - head/neck CTA: 1. Moderate nonspecific cerebral white matter disease, which likely represents chronic small vessel ischemic disease. 2. No aneurysm or significant intracranial arterial stenosis. 3. 20% stenosis of the proximal right internal carotid artery relative to normal distal artery lumen diameter (NASCET criteria). 4. 27% stenosis of the proximal left internal carotid artery relative to normal distal artery lumen diameter. - Troponin: <0.012 x3 - UDS and UA negative - neurology consulted - MRI brain with and without today showed: Moderate nonspecific cerebral white matter disease and pontine disease, which likely represents chronic small vessel ischemic disease. - consider a holter monitor at d/c - telemetry monitoring (2) Elevated brain natriuretic peptide (BNP) level: Code(s): R79.89 - Other specified abnormal findings of blood chemistry Status: Acute Assessment and Plan: - BNP 2120 - no echo on file, ordered - given patient is euvolemic on exam, will hold on diuresis - monitor I&Os and daily weights - trend renal function (3) Frequent falls: Code(s): R29.6 - Repeated falls Status: Acute Assessment and Plan: - fall precautions - PT/OT eval and treat (4) Seizure disorder: Code(s): G40.909 - Epilepsy, unspecified, not intractable, without status epilepticus Status: Acute Assessment and Plan: - EEG - Increase Lamotrigine 150 mg PO BID. - Neurology following. - MRI brain with and without today showed: Moderate nonspecific cerebral white matter disease and pontine disease, which likely represents chronic small vessel ischemic disease. (5) Tobacco use: Code(s): Z72.0 - Tobacco use Status: Acute Assessment and Plan: - pneumonitis seen on XR, suspect this is secondary to smoking - counseled on cessation, but patient is not interested in stopping citing that she doesn't smoke enough for it to be an issue in her eyes Plan Diet: Heart healthy GI Prophylaxis: Not currently indicated DVT Prophylaxis: SCDs Lines: Peripheral Code Status: Full code Subjective Date/time seen: 03/17/24 10:02 Interval history: Patient reports a headache that is a 4 , frequent, and aching. Patient denies chest pain, palpitations, dizziness, nausea, or vomiting. Patient reports that she has had rash on body since August of this year. Patient states that it has improved with Plaquenil. Review of Systems Review of Systems: All systems reviewed & are unremarkable except as noted in HPI and below Exam Const: General: no acute distress Eyes: Sclera: sclerae normal Resp: Effort & Inspection: normal respiratory effort Auscultation: clear to auscultation bilaterally Cardio: Rate: regular rate Rhythm: regular rhythm Other: Telemetry- SR 81. GI: GI Palp: Yes Soft to palpation Auscultation: normal bowel sounds Skin: Other: psoriasis plaques to facial cheeks bilaterally, erthematous and scaly rash to neck and upper trunk. Neuro: Speech: normal speech Extrem: General: normal to inspection Psych: Mental Status: mental status grossly normal Affect: normal affect Objective Data Vital Signs Vital Signs: Vital Signs - 24 hr 03/16/24 11:33 03/16/24 12:21 03/16/24 15:07 Temperature 97.8 F 98.5 F 98.2 F Pulse Rate 83 80 78 Respiratory Rate 18 23 H 26 H Blood Pressure 145/72 H 141/73 H 159/84 H Pulse Oximetry 100 100 100 Oxygen Delivery Room Air 03/16/24 15:17 03/16/24 15:18 03/16/24 15:21 Temperature Pulse Rate 81 81 102 H Respiratory Rate Blood Pressure 164/80 H 162/84 H 159/79 H Pulse Oximetry Oxygen Delivery 03/16/24 15:59 03/16/24 18:05 03/16/24 18:00 Temperature 98.2 F 97.4 F L Pulse Rate 75 82 76 Respiratory Rate 24 H 21 H 16 Blood Pressure 149/85 H 139/69 151/76 H Pulse Oximetry 100 100 99 Oxygen Delivery 03/16/24 19:48 03/16/24 19:49 03/16/24 20:00 Temperature 98.1 F 98.1 F Pulse Rate 84 Respiratory Rate 18 Blood Pressure 139/53 L 139/53 L 139/79 Pulse Oximetry 93 Oxygen Delivery 03/16/24 20:00 03/16/24 20:00 03/17/24 00:00 Temperature Pulse Rate 78 Respiratory Rate Blood Pressure 149/69 H Pulse Oximetry Oxygen Delivery Room Air 03/16/24 20:00 03/17/24 04:25 03/17/24 04:00 Temperature 98.8 F Pulse Rate 85 80 78 Respiratory Rate 20 Blood Pressure 132/64 Pulse Oximetry 98 Oxygen Delivery Intake/Output Intake/Output: Intake & Output 03/14/24 03/15/24 03/16/24 03/17/24 23:59 23:59 23:59 23:59 Intake Total 540 Balance 540 Meds/Results Medications: Active Medications Generic Name Dose Route Start Last Admin Trade Name Freq PRN Reason Stop Dose Admin Acetaminophen 650 mg 03/16/24 16:22 Acetaminophen 325 Mg Tablet PO Q4H PRN Mild Pain (1-3) or Fever Albuterol 1.25 mg 03/17/24 20:00 Albuterol Sulfate Neb 2.5 Mg/3 Ml Inh INHALATION TIDRT SAL Azathioprine 50 mg 03/16/24 18:50 03/17/24 08:22 Azathioprine 50 Mg Tablet PO 50 mg BID SAL Administration Clonazepam 2 mg 03/16/24 18:50 03/17/24 08:22 Clonazepam (*Crx) 0.5 Mg Tablet PO 2 mg BID SAL Administration Hydroxychloroquine Sulfate 200 mg 03/16/24 18:50 03/17/24 08:22 Hydroxychloroquine Sulfate 200 Mg Tablet PO 200 mg BID SAL Administration Hydroxyzine HCl 10 mg 03/16/24 18:41 Hydroxyzine Hcl 10 Mg Tablet PO Q6H PRN Anxiety Lamotrigine 100 mg 03/17/24 09:00 03/17/24 08:22 Lamotrigine 100 Mg Tablet PO 100 mg DAILY SAL Administration Linaclotide 290 mcg 03/17/24 09:00 03/17/24 08:22 Linaclotide 145 Mcg Capsule PO 290 mcg QAM SAL Administration Ondansetron HCl 4 mg 03/16/24 16:22 Ondansetron Inj 4 Mg/2 Ml Vial IV PUSH Q4H PRN Nausea Polyethylene Glycol 17 gm 03/17/24 09:00 03/17/24 08:23 Polyethylene Glycol 3350 17 Gm Powd.Pack PO 17 gm DAILY SAL Administration Sertraline HCl 50 mg 03/17/24 09:00 03/17/24 08:23 Sertraline Hcl 50 Mg Tablet PO 50 mg DAILY SAL Administration Radiology Results: ITS Impressions Chest X-Ray 03/16/24 14:24 IMPRESSION: Bilateral interstitial changes in the lower lobes. Pneumonitis cannot be excluded. Clinical correlation advised. Head/Neck CTA 03/16/24 14:25 IMPRESSION: 1. Moderate nonspecific cerebral white matter disease, which likely represents chronic small vessel ischemic disease. 2. No aneurysm or significant intracranial arterial stenosis. 3. 20% stenosis of the proximal right internal carotid artery relative to normal distal artery lumen diameter (NASCET criteria). 4. 27% stenosis of the proximal left internal carotid artery relative to normal distal artery lumen diameter. Brain MRI 03/17/24 09:29 IMPRESSION: 1. Moderate nonspecific cerebral white matter disease and pontine disease, which likely represents chronic small vessel ischemic disease. Labs Labs: Laboratory Results - last 24 hr 03/16/24 03/16/24 03/16/24 13:06 19:34 22:17 WBC 4.1 L RBC 3.87 L Hgb 11.9 L Hct 36.3 L MCV 93.8 MCH 30.7 MCHC 32.8 RDW 15.6 H Plt Count 214 MPV 9.8 Immature Gran % (Auto) 0.2 Neut % (Auto) 43.1 L Lymph % (Auto) 45.9 H [place] % (Auto) 8.1 Eos % (Auto) 2.5 Baso % (Auto) 0.2 Lymph # (Auto) 1.86 [place] # (Auto) 0.3 Eos # (Auto) 0.1 Baso # (Auto) 0.0 Abs Immat Gran (auto) 0.01 Absolute Neuts (auto) 1.7 Absolute Nucleated RBC 0.000 Nucleated RBC % 0.0 PT 12.8 INR 0.9 APTT 26.3 Sodium 141 Potassium 4.2 Chloride 108 H Carbon Dioxide 28 Anion Gap 5 BUN 14 D Creatinine 0.80 Estim Creat Clear Calc 55 Estimated GFR > 60 Glucose 71 Calcium 8.5 Magnesium 2.0 Total Bilirubin 0.3 AST 21 ALT 10 Alkaline Phosphatase 85 Total Creatine Kinase 41 Troponin I < 0.012 < 0.012 < 0.012 NT-Pro-B Natriuret Pep 2120 H Total Protein 8.0 Albumin 3.8 Urine Color Yellow Urine Appearance Clear Urine pH 6.0 Ur Specific [place] 1.014 Urine Protein Negative Urine Glucose (UA) Negative Urine Ketones Negative Ur Blood (Man) Negative Urine Nitrate Negative Urine Bilirubin Negative Urine Urobilinogen 0.2 Leukocyte Esterase Rfl Trace H Urine RBC 0-2 Urine WBC 0-5 Ur Squamous Epith Cells None seen Urine Bacteria None seen Urine Casts 0-2 Urine Opiates Screen Negative Urine Methadone Screen Negative Ur Barbiturates Screen Negative Ur Phencyclidine Scrn Negative Ur Amphetamine Screen Negative U Benzodiazepines Scrn Negative Urine Cocaine Screen Negative U Cannabinoids Screen Negative 03/17/24 05:15 WBC 3.0 L RBC 3.88 L Hgb 11.7 L Hct 36.3 L MCV 93.6 MCH 30.2 MCHC 32.2 RDW 15.4 H Plt Count 225 MPV 10.6 H Immature Gran % (Auto) 0.3 Neut % (Auto) 35.5 L Lymph % (Auto) 49.0 H [place] % (Auto) 10.1 H Eos % (Auto) 4.4 Baso % (Auto) 0.7 Lymph # (Auto) 1.46 [place] # (Auto) 0.3 Eos # (Auto) 0.1 Baso # (Auto) 0.0 Abs Immat Gran (auto) 0.01 Absolute Neuts (auto) 1.1 L Absolute Nucleated RBC 0.000 Nucleated RBC % 0.0 PT INR APTT Sodium 141 Potassium 3.4 Chloride 105 Carbon Dioxide 30 Anion Gap 6 BUN 14 Creatinine 1.00 Estim Creat Clear Calc 45 Estimated GFR 56 L Glucose 103 Calcium 8.4 Magnesium Total Bilirubin AST ALT Alkaline Phosphatase Total Creatine Kinase Troponin I NT-Pro-B Natriuret Pep Total Protein Albumin Urine Color Urine Appearance Urine pH Ur Specific [place] Urine Protein Urine Glucose (UA) Urine Ketones Ur Blood (Man) Urine Nitrate Urine Bilirubin Urine Urobilinogen Leukocyte Esterase Rfl Urine RBC Urine WBC Ur Squamous Epith Cells Urine Bacteria Urine Casts Urine Opiates Screen Urine Methadone Screen Ur Barbiturates Screen Ur Phencyclidine Scrn Ur Amphetamine Screen U Benzodiazepines Scrn Urine Cocaine Screen U Cannabinoids Screen Quality VTE Prophylaxis VTE prophylaxis: mechanical ordered
--- NOTE | 2024-03-17 13:59 | P.CONNEU_ITS ---
Assessment and Plan Assessment and plan (1) Seizure disorder: Code(s): G40.909 - Epilepsy, unspecified, not intractable, without status epilepticus Status: Acute Assessment and Plan: at this time the possibility of pseudoseizures would need to be borne in mind given her psychiatric history and self description of the spells however she states that she has fallen out of bed and has had injuries to the head but she never had any tongue biting or incontinence of urine but she does get confused. I would like to suggest an MRI of the brain and EEG and in the meanwhile increase the dose of lamotrigine 250 mg twice a day. A baseline prolactin level and if she has any seizure-like spell a repeat prolactin level within 20-30 minutes may be helpful. Finally I will be glad to see her in my office there after discharge and if necessary we can arrange for her to have video EEG monitoring for 5 days at [facility] which will be very helpful given the fact that she is having frequent spells starting since August despite her being off Wellbutrin. (2) Psychiatric problem: Code(s): F99 - Mental disorder, not otherwise specified Status: Acute Assessment and Plan: Patient is under psychiatric care (3) Smoking addiction: Code(s): F17.200 - Nicotine dependence, unspecified, uncomplicated Status: Acute Plan as mentioned above shall obtain an MRI of the brain, EEG and increase the dose of lamotrigine 250 mg twice a day and obtain a baseline prolactin level Consult date: 03/17/24 HPI: Chacha Lee is a 63 year old female With history of lupus erythematosus, psoriasis and psychiatric problems and chronic smoking presented to the hospital with spells of twitching of the right lower limb and passing-out spells. She has had a seizure spell in August 2023 which was thought to be most likely due to Wellbutrin and she was taken off the medication. She is still on Klonopin 2 mg twice a day and lamotrigine home 100 mg twice a day prescribed by her psychiatrist for mental problems. Despite that the patient is having times that she would have twitching of the right leg and she will fall out of the bed and has injuries to the head. She never had any tongue biting incontinence of urine however after the spells he may be confused for a period of time. However the description given are all from the patient herself. I do not have any eyewitness account of these spells. CT scan of brain was performed which shows white matter changes. Patient lives by herself however has support from her daughter and also her neighbor. She has not had any neurologic workup in the past. Review of Systems Review of Systems: All systems reviewed & are unremarkable except as noted in HPI and below PMFSH Past Medical History Medical History (Updated 03/17/24 @ 14:04 by Lily Graves MD) Herpes zoster dermatitis History of seizure x1 (August 09); attributed to Wellbutrin which was d/c'd Lupus (systemic lupus erythematosus) (~2011) Psoriasis (~2018) Psychiatric problem Seizure disorder Seronegative rheumatoid arthritis of both hands Seronegative rheumatoid arthritis of multiple sites Smoking addiction Tobacco use Vitamin D deficiency Family History Family History Mother Diabetes mellitus Father Heart disease Social History Social History Smoking packs per day: 10 Smoking cigarettes per day: 200.0 Years smoked: 50 Smoking pack-years: 500.00 Smoking status: Current every day smoker Tobacco type: cigarettes Alcohol intake: never Substance use: current Substance use type: marijuana Do You Feel Safe in your Home?: Yes Lack of Transportation: No Lack of Food: Never True Current Housing: I Have Housing Concerned About Future Housing: No Difficulty Paying Gas/Electric Bills: No Difficulty Paying for Meds: No Currently Unemployed: No Education: High School Diploma/GED Difficulty w/ Childcare or Family Care: No Spiritual care concerns: No Meds Home Medications and Allergies Home Medications Medication Instructions Recorded Confirmed Type albuterol sulfate 1.25 mg/3 mL 1.25 mg inhalation TID 08/06/21 03/16/24 History solution for nebulization clonazepam 2 mg tablet 2 mg PO BID 08/06/21 03/16/24 History lamotrigine 200 mg tablet 100 mg PO BID 08/06/21 03/16/24 History linaclotide 290 mcg capsule 290 mcg PO QAM 08/06/21 03/16/24 History (Linzess) ondansetron 4 mg disintegrating 4 mg PO QAM PRN Nausea 08/06/21 03/16/24 History tablet polyethylene glycol 3350 17 17 g PO DAILY 08/06/21 03/16/24 History gram/dose oral powder hydroxychloroquine 200 mg tablet 200 mg PO BID #90 tabs 08/22/21 03/16/24 Rx azathioprine 50 mg tablet 50 mg PO BID #60 tabs 09/30/21 03/16/24 Rx hydroxyzine HCl 10 mg tablet 10 mg PO PRN 03/11/24 03/16/24 History sertraline 50 mg tablet 50 mg PO DAILY 03/16/24 03/16/24 History Allergies Allergy/AdvReac Type Severity Reaction Status Date / Time bupropion [From Wellbutrin] Allergy Rash Verified 03/11/24 10:43 Vital Signs Vital Signs - 24 hr 03/16/24 15:07 03/16/24 15:17 03/16/24 15:18 Temperature 98.2 F Pulse Rate 78 81 81 Respiratory Rate 26 H Blood Pressure 159/84 H 164/80 H 162/84 H Pulse Oximetry 100 Oxygen Delivery 03/16/24 15:21 03/16/24 15:59 03/16/24 18:05 Temperature 98.2 F Pulse Rate 102 H 75 82 Respiratory Rate 24 H 21 H Blood Pressure 159/79 H 149/85 H 139/69 Pulse Oximetry 100 100 Oxygen Delivery 03/16/24 18:00 03/16/24 19:48 03/16/24 19:49 Temperature 97.4 F L 98.1 F 98.1 F Pulse Rate 76 84 Respiratory Rate 16 18 Blood Pressure 151/76 H 139/53 L 139/53 L Pulse Oximetry 99 93 Oxygen Delivery 03/16/24 20:00 03/16/24 20:00 03/16/24 20:00 Temperature Pulse Rate Respiratory Rate Blood Pressure 139/79 149/69 H Pulse Oximetry Oxygen Delivery Room Air 03/17/24 00:00 03/16/24 20:00 03/17/24 04:25 Temperature 98.8 F Pulse Rate 78 85 80 Respiratory Rate 20 Blood Pressure 132/64 Pulse Oximetry 98 Oxygen Delivery 03/17/24 04:00 03/17/24 10:44 03/17/24 10:45 Temperature Pulse Rate 78 85 85 Respiratory Rate Blood Pressure 121/71 127/70 Pulse Oximetry 99 99 Oxygen Delivery 03/17/24 10:46 03/17/24 08:00 03/17/24 12:00 Temperature Pulse Rate 87 80 78 Respiratory Rate Blood Pressure 123/71 Pulse Oximetry 99 Oxygen Delivery 03/17/24 08:20 Temperature Pulse Rate Respiratory Rate Blood Pressure Pulse Oximetry Oxygen Delivery Room Air Exam Const: General: cooperative, well developed and alert Orientation/consciousness: patient oriented x3 Other: Skin changes consistent with her work chronic lupus erythematosus or psoriasis were noted HENMT: Head: atraumatic Mouth: Yes oropharynx normal Eyes: Alignment and Position: position normal Pupils: Equal, round and reactive pupils present EOM: EOMs intact bilaterally Neck: Neck: supple Resp: Effort & Inspection: normal respiratory effort Skin: Rashes: rashes noted Neuro: General: patient oriented x3 Cranial nerves: Yes CN's II-XII intact bilaterally, Yes facial sensation intact/muscles of mastication intact, Yes Equal, round and reactive pupils present, Yes facial symmetry and Yes Midline tongue present Cognition (Neuro): normal cognition Speech: normal speech Motor exam (neuro): 5/5 motor strength present throughout Sensory Exam: normal sensation Coordination: [id number] test normal and Normal rapid alternating movements of the distal upper extremity present (Neuro) Other: no involuntary movements were noted including attention to the upper and lower limbs. Psych: Mental Status: mental status grossly normal Affect: normal affect Results Labs 03/17/24 05:15 03/17/24 05:15 Labs: Short CBC 03/17/24 Range/Units 05:15 WBC 3.0 L (4.5-10.0) K/mm3 Hgb 11.7 L (12.0-15.0) g/dL Hct 36.3 L (37.0-47.0) % Plt Count 225 (150-375) k/mm3 BMP 03/17/24 05:15 Sodium 141 Potassium 3.4 Chloride 105 Carbon Dioxide 30 BUN 14 Creatinine 1.00 Glucose 103 Calcium 8.4 Cardiac Enzymes 03/16/24 03/16/24 Range/Units 19:34 22:17 Troponin I < 0.012 < 0.012 (0.000-0.034) ng/mL
[2024-03-17] MEDS: lamoTRIgine 50 MG TABLET 150 MG PO (19:59)
[2024-03-17] MEDS: ALBUTEROL SULFATE NEB 2.5 MG/3 ML INH 1.25 MG INHALATION (20:18)
[2024-03-18] VITALS (10 sets, daily range): BP systolic 104–119; BP diastolic 61–65; PULSE 73–88; RESP 18–24; TEMP 36.5; O2SAT 96–98
[2024-03-18 05:45] LABS: Basophils Percent Auto 0.6 % (0.2-1.2); Eosinophils Absolute Auto 0.1 K/mm3 (0-0.3); Eosinophils Percent Auto 4.1 % (0-4.4); Hemoglobin 11.9 g/dL (12.0-15.0); Mean Corpuscular HGB Conc 31.3 g/dl (32-36); Mean Corpuscular Hemoglobin 29.8 pg (26-34); Mean Corpuscular Volume 95.2 fl (80-100); Mean Platelet Volume 9.8 fl (7.4-10.4); Monocytes Absolute Auto 0.4 K/mm3 (0.1-0.6); Monocytes Percent Auto 12.4 % (2.6-8.5); Neutrophils Percent Auto 31.9 % (45.5-73.1); Platelet Count Result 228 k/mm3 (150-375); Red Blood Count 3.99 M/mm3 (4.2-5.4); Red Cell Distribution Width 15.1 % (11.5-14.5); White Blood Count 3.1 K/mm3 (4.5-10.0)
[2024-03-18 06:04] LABS: Alanine Aminotransferase 10 U/L (6-35); Albumin Level 3.8 g/dL (3.5-5.1); Alkaline Phosphatase 82 U/L (38-126); Anion Gap 1 mmol/L (4-12); Aspartate Amino Transferase 24 U/L (14-36); Bilirubin,Total 0.6 mg/dL (0.2-1.3); Blood Urea Nitrogen 22 mg/dL (7-17); Calcium 8.8 mg/dL (8.4-10.2); Carbon Dioxide 33 mmol/L (22-30); Chloride 104 mmol/L (98-107); Estimated CRCL calculation 38 ml/min; Estimated Glomerular Filt Rate 45; Glucose 78 mg/dL (65-110); Potassium 5.1 mmol/L (3.4-5.0); Sodium 138 mmol/L (137-145)
[2024-03-18 06:23] LABS: Atypical Lymphocytes Present; Platelet Estimate Adequate (Adequate); Schistocytes None Seen
[2024-03-18] MEDS: ALBUTEROL SULFATE NEB 2.5 MG/3 ML INH 1.25 MG INHALATION ×2 (07:47→13:29)
[2024-03-18] MEDS: polyethylene glycoL 3350 17 GM POWD.PACK PO (09:03)
[2024-03-18] MEDS: clonazePAM (*CRX) 0.5 MG TABLET 2 MG PO (09:03)
[2024-03-18] MEDS: HYDROXYCHLOROQUINE SULFATE 200 MG TABLET PO (09:03)
[2024-03-18] MEDS: SERTRALINE HCL 50 MG TABLET PO (09:03)
[2024-03-18] MEDS: lamoTRIgine 50 MG TABLET 150 MG PO (09:03)
[2024-03-18] MEDS: LINACLOTIDE 145 MCG CAPSULE 290 MCG PO (09:03)
[2024-03-18] MEDS: azaTHIOprine 50 MG TABLET PO (09:03)
--- NOTE | 2024-03-18 09:10 | PCNEURO ---
EEG attempted but patient unable to tolerate setup due to bruises and cuts on head from falling and skin condition.
--- NOTE | 2024-03-18 14:51 | PM.DS ---
DS: Admitting Diagnosis Discharge Date 03/18/2024 Admitting Diagnosis Seizure Like Activity DS: Discharge Diagnosis Discharge Diagnosis (1) Seizure-like activity: Code(s): R56.9 - Unspecified convulsions Status: Acute Assessment and Plan: - Unwitnessed but patient waking up on the floor at times after falling from bed. - MRI Brain: IMPRESSION: 1. Moderate nonspecific cerebral white matter disease and pontine disease, which likely represents chronic small vessel ischemic disease. - Patient placed on seizure precautions. - No episodes inpatient. - Neurologist consulted and suspecting possible pseudo-seizures. - Lamotrigine dose increased 100mg BID >> 150 mg BID. - Outpatient f/u with neurologist. - Neurologist to consider referral to [facility] for continuous EEG monitoring with repeat episodes. - Follow up with neurologist outpatient. (2) Syncope: Qualifiers: Syncope type: unspecified Qualified Code(s): R55 - Syncope and collapse Code(s): R55 - Syncope and collapse Status: Acute Assessment and Plan: - Possibly related to above. - EKG, initial: Sinus rhythm, rate 79, borderline ST-T-wave abnormality in high lateral leads. No previous EKG available for comparison. - CXR: bilateral interstitial changes in the lower lobes, pneumonitis copy excluded. - head/neck CTA: 1. Moderate nonspecific cerebral white matter disease, which likely represents chronic small vessel ischemic disease. 2. No aneurysm or significant intracranial arterial stenosis. 3. 20% stenosis of the proximal right internal carotid artery relative to normal distal artery lumen diameter (NASCET criteria). 4. 27% stenosis of the proximal left internal carotid artery relative to normal distal artery lumen diameter. - Troponin: <0.012 x3 - UDS and UA negative - MRI brain with and without today showed: Moderate nonspecific cerebral white matter disease and pontine disease, which likely represents chronic small vessel ischemic disease. - Maintained SR on telemetry monitoring. - No further w/u needed for now. (3) Elevated brain natriuretic peptide (BNP) level: Code(s): R79.89 - Other specified abnormal findings of blood chemistry Status: Acute Assessment and Plan: - BNP 2120. - No baseline comparison. - no echo on file. - Patient is euvolemic on exam. - Follow-up with PCP outpatient. (4) Frequent falls: Code(s): R29.6 - Repeated falls Status: Acute Assessment and Plan: - Likely related to pseudoseizures vs seizures vs other. - Seen by PT/OT and safe for home discharge with self care. (5) Seizure disorder: Code(s): G40.909 - Epilepsy, unspecified, not intractable, without status epilepticus Status: Acute Assessment and Plan: - Seizure precautions inpatient and no episodes inpatient. - MRI brain w/wo: Moderate nonspecific cerebral white matter disease and pontine disease, which likely represents chronic small vessel ischemic disease. - Seen by neurologist and Lamictal dose increased; 100 mg BID >>150 mg BID. - Follow-up with neurologist outpatient. (6) Tobacco use: Code(s): Z72.0 - Tobacco use Status: Acute Assessment and Plan: - pneumonitis on CXR possibly related to smoking. - counseled on cessation but states doesn't smoke enough for it to be an issue. (7) Lupus (systemic lupus erythematosus): Onset Date: ~2011 Qualifiers: Systemic lupus erythematosus type: unspecified Systemic lupus erythematosus organ involvement: unspecified Qualified Code(s): M32.9 - Systemic lupus erythematosus, unspecified Code(s): M32.9 - Systemic lupus erythematosus, unspecified Status: Inactive Assessment and Plan: - Stable inpatient. - Resume home medications. Plan Diet: Heart healthy GI Prophylaxis: Not currently indicated DVT Prophylaxis: SCDs Lines: Peripheral Code Status: Full code DS: Summary Hospital Course Reason for hospitalization: Seizure Like Activity Hospital Course: Patient presented to the ER with reports of frequent falls, dizziness and syncope episodes. She was concerned she could be having seizures but no episode was witnessed. She reported involuntary movements affecting the right leg which had been occurring almost daily and started around the same time as the syncopal episodes. She also reported that feeling off balance which had altered her gait. Patient was initially seen at [facility] ER ([place], [place]) and they told her that she was likely having seizures and told her to stop taking her Wellbutrin which she had already been off of for months. Patient's psychologist originally d/c'd the Wellbutrin which they suspected contributed her seizures. Patient had an MRI brain w/wo contrast that was non-revealing. She has not had any episodes inpatient and was seen by Neurologist who suspected patient was possibly having pseudoseizures. Patient's Lamotrigine dose was increased by the neurologist. Her labs have been fairly unremarkable with no acute distress noted or reported prior to discharge. Patient has been cleared for discharge by the neurologist to follow outpatient and would be referred for continuous EEG for any repeat images. Patient states she wants to go home and states she will f/u with neurologist outpatient. Time spent discussing smoking cessation with patient: more than 10 minutes Status at Discharge Functional status at discharge: independent ambulation Overall status at discharge: patient is back to baseline Time Spent with Patient Time attestation: Total time spent providing and/or coordinating discharge services: Time spent: Greater than 30 minutes Exam Narrative: HEENT: Atraumatic, PERRL, EOM, moist mucus membranes. Neck: Supple. Lungs: Clear bilaterally. Heart: RRR, no murmurs. Abdomen: Soft, non-tender, non--distended, +ve bowel sounds X 4 quadrants. Extremities: No edema. 2+ pedal pulses. Skin: Dry flaky rash to upper chest and face. Neuro: Well oriented. No focal neuro deficits noted. Psych: Pleasant and co-operative. DS: Data Data Completed and Pending Labs on day of discharge: Labs from last 24 hours 03/18/24 05:19 WBC 3.1 L RBC 3.99 L Hgb 11.9 L Hct 38.0 MCV 95.2 MCH 29.8 MCHC 31.3 L RDW 15.1 H Plt Count 228 MPV 9.8 Immature Gran % (Auto) 0.0 Neut % (Auto) 31.9 L Lymph % (Auto) 51.0 H [place] % (Auto) 12.4 H Eos % (Auto) 4.1 Baso % (Auto) 0.6 Lymph # (Auto) 1.60 [place] # (Auto) 0.4 Eos # (Auto) 0.1 Baso # (Auto) 0.0 Abs Immat Gran (auto) 0.00 Absolute Neuts (auto) 1.0 L Absolute Nucleated RBC 0.000 Nucleated RBC % 0.0 Atypical Lymphocytes Present Platelet Estimate Adequate Schistocytes None seen Sodium 138 Potassium 5.1 H Chloride 104 Carbon Dioxide 33 H Anion Gap 1 L BUN 22 H Creatinine 1.20 H Estim Creat Clear Calc 38 Estimated GFR 45 L Glucose 78 Calcium 8.8 Total Bilirubin 0.6 AST 24 ALT 10 Alkaline Phosphatase 82 Total Protein 8.0 Albumin 3.8 Discharge Plan Discharge Attending physician on discharge: James Mendez Consulting providers: Lily Graves Discharging Clinician: Mala Snowden Anticipated Discharge Date/Time: 03/18/24 15:32 Patient Disposition: Home, Self-Care Activity: as tolerated Diet: regular Patient Instructions: Antibiotic Form, How to Stop Smoking (GEN) Stand Alone Forms: General Discharge Information Follow-up/Referrals: Lily Graves MD [Physician] - 2 Weeks Zenon,CAROL Parra [Primary Care Provider] - 1 Week Discharge Medications: New lamotrigine [Lamictal] 100 mg Tablet 150 mg PO Q12HR Qty: 60 0RF Continued albuterol sulfate 1.25 mg/3 mL solution for nebulization 1.25 mg inhalation TID clonazepam 2 mg tablet 2 mg PO BID polyethylene glycol 3350 17 gram/dose powder 17 g PO DAILY ondansetron 4 mg tablet,disintegrating 4 mg PO QAM PRN (Reason: Nausea) Linzess 290 mcg capsule 290 mcg PO QAM hydroxyzine HCl 10 mg tablet 10 mg PO PRN sertraline 50 mg tablet 50 mg PO DAILY hydroxychloroquine 200 mg tablet 200 mg PO BID Qty: 90 6RF azathioprine 50 mg tablet 50 mg PO BID Qty: 60 2RF Discontinued lamotrigine 200 mg tablet 100 mg PO BID Rx Instructions: pt take 100 mg DAILY Date of admission: 03/17/24 16:12 Primary Care Provider: Sameer*Hina Admitting Provider: Josesito Giang Attending physician on admission: Josesito Giang Condition: Stable Quality If No VTE Prophylaxis Answer both mechanical and pharmacologic: Reason no mechanical VTE proph: low risk/not indicated Reason no pharmacologic proph: low risk/not indicated Hospitalist MIPS Heart Failure (Exclusion) Patient has history of Heart Transplant or Left Ventricular Assistive Device?: No IF YES, STOP HERE Heart Failure (Qualifier) Patient has current or prior documentation of LVEF less than or equal to 40%, or mod/servere depressed LVSF?: No IF NO, STOP HERE
--- NOTE | 2024-03-18 17:16 | PC.NURSE ---
Patient d/c and family called pt between providers and has no medications at home. Mala BELL notified and reports to refill medications patient needs x30 days
== END 2024-03-18 16:28 | disposition home or self-care (01) | DRG 101 ==
LOC: ANHED 12:42 → ANH2MED 17:44
PROVIDERS: Nurse Practitioner Family; Student in an Organized Health Care Education/Training Program; Admitting Provider General Practice; Emergency Provider Student in an Organized Health Care Education/Training Program; PCP Physician Assistant; Visit Provider Nurse Practitioner Adult Health
DX: G40.909 Epilepsy, unspecified, not intractable, without status epilepticus (principal); R55 Syncope and collapse; E55.9 Vitamin D deficiency, unspecified; L40.9 Psoriasis, unspecified; M32.9 Systemic lupus erythematosus, unspecified; M06.09 Rheumatoid arthritis without rheumatoid factor, multiple sites; R29.6 Repeated falls; R29.702 NIHSS score 2; F17.210 Nicotine dependence, cigarettes, uncomplicated; F99 Mental disorder, not otherwise specified
CPT/HCPCS: 36415; 70496; 70498; 70553; 71045; 80048; 80053; 80307; 81001; 82550; 83735; 83880; 84484; 85025; 85610; 85730; 93005; 94640; 96374; 96375; 97161; 97165; 99285; A9270; A9577; G0378; J1200; J1940; Q9967

== ENCOUNTER → 2024-08-01 13:36 | Outpatient (CLI) | payer MEDICAID, MEDICARE, SELFPAY ==
--- NOTE | ~2024-08-01 | XR_ITS ---
XR hip LT min 2V Ordering provider: Liliane Nolasco DO History: . M25.552 - Pain in left hip . Comparison: None. FINDINGS: BONES: No acute fracture or dislocation. HIP JOINT SPACES: Normal. SACROILIAC JOINT SPACES/LUMBAR SPINE: The sacroiliac joint spaces are normal. Mild degenerative awad es of the visualized lower lumbar spine. PUBIC SYMPHYSIS: Normal. SOFT TISSUES: Normal. IMPRESSION: No acute osseous abnormality pelvis and left hip. Reviewed, dictated and finalized at location A.
--- NOTE | ~2024-08-01 | XR_ITS ---
XR knee LT 3V Ordering provider: Liliane Nolasco DO History: . M25.562 - Pain in left knee . Comparison: March 20, 2014 FINDINGS: BONES: No acute fracture or dislocation. 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 JOINT SPACES: Marginal osteophytes in the patella suggestive of early osteoarthritic changes. SOFT TISSUES: Normal. IMPRESSION: No acute osseous abnormality left knee. Mild osteoarthritic changes. Reviewed, dictated and finalized at location A.
--- NOTE | ~2024-08-01 | XR_ITS ---
XR shoulder LT min 2V Ordering provider: Liliane Nolasco DO History: . M25.512 - Pain in left shoulder . Comparison: None. FINDINGS: BONES: No acute fracture or dislocation. JOINT SPACES: The acromioclavicular joint is normal. The glenohumeral joint is normal. SOFT TISSUES: Normal. IMPRESSION: No acute osseous abnormality left shoulder. Reviewed, dictated and finalized at location A.
== END ==
LOC: EXPCRAD 13:44
PROVIDERS: PCP Family Medicine; Visit Provider Family Medicine
DX: M25.512 Pain in left shoulder (principal); M17.12 Unilateral primary osteoarthritis, left knee; M25.552 Pain in left hip
CPT/HCPCS: 73030; 73502; 73562